=== PATIENT | male | born 1940 | race Asian ===

== ENCOUNTER 2022-09-08 13:49 | Emergency (ER) | payer MEDICARE ==
[~2022-09-08] VITALS: Ht 165.1 cm; Wt 54.5 kg
[~2022-09-08 13:49] MED LIST: ASPIRIN81 MG PO; LISINOPRIL20 MG PO; METOPROLOL25 M1 OR; MULTI VIT PO; SIMVASTATIN20 MG OR; ULTRAM50 MG OR; ZITHROMAX500 MG PO
[2022-09-08] MEDS ORDERED: MIRALAX17 GM PO (14:15)
[2022-09-08] MEDS ORDERED: COLACE100 MG PO (14:15)
[2022-09-08 14:18] VITALS: BP 145/64
== END 2022-09-08 14:24 | disposition home or self-care (01) ==
LOC: ED 13:49
DX: K56.41 Fecal impaction (principal); I10 Essential (primary) hypertension